=== PATIENT | female | born 1945 | race Caucasian/White ===

== ENCOUNTER 2016-11-30 08:50 | Day surgery (SDC) | payer MEDICARE ==
[2016-11-29 08:41] VITALS: BMI 19.7
[2016-11-30 09:15] VITALS: RESP 16; TEMP 97
[2016-11-30] MEDS ORDERED: SODIUM CHLORIDE 0.9% 500 ML IV ONE (09:20)
[2016-11-30] MEDS ORDERED: MIDAZOLAM 2 MG/2 ML VIAL ONE (11:00)
[2016-11-30] MEDS ORDERED: fentaNYL (PF) 50 MCG/ML 2 ML AMP ONE (11:01)
[2016-11-30] MEDS: BENZOCAINE SPRAY 100 APPLIC/CAN MUCOUS MEM ONE ×2 (11:24→11:40)
[2016-11-30] MEDS ORDERED: MIDAZOLAM 2 MG/2 ML VIAL IVP ONE ×2 (11:32→11:49)
--- NOTE | 2016-11-30 13:26 | ECHOT ---
DATE OF SERVICE: 11/30/2016 PERFORMING PHYSICIAN: Franco Sandhu MD, tape maker. PROCEDURE PERFORMED: Transesophageal echocardiogram. INDICATIONS OF THE STUDY: This is a pleasant 71-year-old female patient who was experiencing shortness of breath. She underwent transthoracic echocardiogram, which showed dilated right ventricle. The transesophageal echocardiogram to rule out any interatrial shunt. COMPLICATIONS: None. LEVEL OF SEDATION: Moderate with a sedation length of about 15 minutes. PROCEDURE DESCRIPTION: After obtaining an informed consent, explaining the procedure, benefits, risks, complications and alternatives, the patient was brought to the transesophageal echocardiogram suite. A pulse oximetry and heart rate monitors were attached to the patient prior to the procedure. The patient's throat was sprayed using lidocaine locally. Following that, the patient was turned into left lateral position. A bite guard was placed and the patient was then sedated with the above doses of Versed and fentanyl in divided doses. Following that, the transesophageal echocardiogram probe was advanced through the bite guard into the mid esophagus where 2-D echocardiogram images as well as color Doppler images of various cardiac structures were obtained. We evaluated the interatrial septum using 2-D echocardiogram, color Doppler, and contrast study. The procedure was completed. There were no complications. FINDINGS: The left ventricular dimension and systolic function appeared to be within normal limits. The ejection fraction appeared to be in the range of 55% to 60% with a normal wall motion. The right ventricle appeared to be dilated. The left atrium and right atrium are mildly dilated. Left atrial appendage appeared to be free from any thrombus. The interatrial septum appeared to be intact without any evidence of shunt across it. The aortic valve is trileaflet valve with trace aortic insufficiency but the mitral valve seems to be also normal with mild MR. The tricuspid valve appeared to have moderate tricuspid regurgitation. The pulmonic valve appeared to be within normal limits. CONCLUSION: 1. Intact interatrial septum without any evidence of shunt. 2. Normal left atrial appendage without any evidence of thrombus. 3. Mild biatrial enlargement. 4. Normal left ventricular dimension and systolic function. 5. Mildly dilated right ventricle with normal function. 6. Trileaflet aortic valve without stenosis with mild insufficiency. 7. Normal mitral valve leaflets with mild mitral regurgitation. 8. Moderate tricuspid regurgitation. 9. Normal pulmonary artery systolic pressure. 10. No evidence of pericardial effusion.
[2016-11-30 13:43] VITALS: BP 105/57; PULSE 66
== END 2016-11-30 13:45 | disposition home or self-care (01) ==
LOC: CATHCVL 08:50
PROVIDERS: ATTEND Internal Medicine Interventional Cardiology
DX: I36.1 Nonrheumatic tricuspid (valve) insufficiency (principal); I47.1 Supraventricular tachycardia; I27.2 Other secondary pulmonary hypertension; E78.5 Hyperlipidemia, unspecified; Z82.49 Family history of ischemic heart disease and other diseases of the circulatory system; Z79.51 Long term (current) use of inhaled steroids
CPT/HCPCS: 93312; 93320; 93325; 99152; J2250

== ENCOUNTER → 2016-12-11 | Outpatient (CLI) | payer MEDICARE ==
[2016-12-11 16:37] LABS: CH 32.1; HCT 39.6 % (34.0-46.0); HDW 2.21; HGB 12.7 gm/dL (11.4-16.0); MCH 31.3 pg (25.0-35.0); MCV 97.8 fL (80.0-100.0); Mean Platelet Volume 7.7; RBC 4.05 m/uL (3.80-5.40); RDW 12.9 % (11.5-15.5); WBC 6.7 k/uL (3.8-10.6)
[2016-12-11 16:55] LABS: Anion Gap 10 mmol/L; Blood Urea Nitrogen 21 mg/dL (7-17); Carbon Dioxide 26 mmol/L (22-30); Chloride 104 mmol/L (98-107); Non-African American GFR(MDRD) >60 (>60 ml/min/1.73 sqM); Potassium 4.8 mmol/L (3.5-5.1); Sodium 140 mmol/L (137-145)
== END ==
LOC: LABPAT 16:24
PROVIDERS: ATTEND Internal Medicine Interventional Cardiology
DX: Z01.812 Encounter for preprocedural laboratory examination (principal); R07.9 Chest pain, unspecified
CPT/HCPCS: 36415; 80051; 82565; 84520; 85027

== ENCOUNTER 2016-12-24 10:29 | Day surgery (SDC) | payer MEDICARE ==
[2016-12-18 15:33] VITALS: BMI 20.1
[~2016-12-24 10:29] MED LIST: ALPRAZolam 0.25 MG TAB PO PRN; ALPRAZolam 0.5 MG TAB PO PRN; ASPIRIN 325 MG TAB PO STA; ATORVASTATIN 80 MG TAB PO STA; NITROGLYCERIN SL TABS 0.4 MG TAB SUBLINGUAL PRN; SODIUM CHLORIDE 0.9% 1,000 ML in EMPTY BAG 1 BAG IV ONE
[2016-12-24 10:52] VITALS: TEMP 97.6
[2016-12-24] MEDS ORDERED: MIDAZOLAM 2 MG/2 ML VIAL ONE (12:06)
[2016-12-24] MEDS ORDERED: LIDOCAINE 2% INJ 20 MG/ML (20 ML MDV) ONE (12:06)
[2016-12-24] MEDS ORDERED: MIDAZOLAM 2 MG/2 ML VIAL IV ONE (12:10)
[2016-12-24] MEDS ORDERED: LIDOCAINE 2% INJ 20 MG/ML SQ ONE (12:11)
[2016-12-24] MEDS ORDERED: IOHEXOL 350 MG/ML 125ML BOTTLE INJ ONE (12:27)
[2016-12-24] MEDS ORDERED: RX INFO: IV CONTRAST WAS GIVEN 1 EACH MISC MISCELLANE PRN (12:33)
[2016-12-24] MEDS ORDERED: SODIUM CHLORIDE 0.9% 1,000 ML IV SCH (12:45)
[2016-12-24 16:00] VITALS: PULSE 57; RESP 16
[2016-12-24] MEDS ORDERED: ACETAMINOPHEN TAB 325 MG TAB ONE (16:29)
[2016-12-24 17:20] VITALS: BP 89/53
--- NOTE | 2016-12-24 22:31 | CC ---
DATE OF SERVICE: 12/24/2016 Performing physician: Franco Sandhu M.D., lens grinder rough. PROCEDURES PERFORMED: 1. Selective right and left coronary angiogram. 2. Left heart catheterization. 3. Left ventriculography. INDICATION: This is a pleasant 71-year-old continues to have intermittent episodes chest discomfort in spite of maximized medical treatment. Approach: Right common femoral artery. Level of sedation: Moderate. PROCEDURE DESCRIPTION: After obtaining informed consent, the patient was brought to the cardiac laboratory engineer. Right common femoral artery was cannulated using micropuncture technique. Micropuncture wire passed easily and then I placed a 6 [place] sheath in the right common femoral artery. After that, I did selective right and left coronary angiogram using JR 3.5 and JL 3.5 catheters. After that, I did left heart catheterization and LV gram using a 6 [place] pigtail catheter. The procedure was completed without any complication. SELECTIVE CORONARY ANGIOGRAM: 1. The right coronary artery is a large-caliber vessel and it is a dominant vessel and it is angiographically normal. It bifurcates into PDA and PLV branches; both are angiographically normal. 2. The left main is angiographically normal. It bifurcates into the left circumflex and left anterior descending artery. The left circumflex is a large-caliber vessel and a nondominant vessel. The left circumflex is angiographically normal and gives rise into 2 obtuse marginal branches appeared to be angiographically normal. 3. The left anterior descending artery. The proximal LAD is angiographically normal. The mid LAD has plaque, seems to be in the range of 20% only. This is by the bifurcation of the large diagonal, which seems to be angiographically normal. The LAD distally is angiographically normal. HEMODYNAMICS: The left ventricular end-diastolic pressure was 12 mmHg. No gradient was identified across the aortic valve. Left ventriculography was performed in the BORJAS projection and using a power injection. The left ventricular systolic function seems to be normal. CONCLUSION: Mild nonobstructive coronary artery disease involving the mid left anterior descending coronary artery. Postprocedure management: Medical treatment.
--- NOTE | 2016-12-24 22:33 | LTR ---
December 24, 2016 RE: Stephanie Orourke Dear Dr. Campos: Ms. Stephanie Orourke underwent heart catheterization that showed mild nonobstructive coronary artery disease. I want to thank you for allowing me to participate in her care. Please do not hesitate to call if you have any questions or concerns. Sincerely, JANE WEBB MD
== END 2016-12-24 17:43 | disposition home or self-care (01) ==
LOC: CATHCVL 10:29
PROVIDERS: ATTEND Internal Medicine Interventional Cardiology
DX: I25.110 Atherosclerotic heart disease of native coronary artery with unstable angina pectoris (principal); I47.1 Supraventricular tachycardia; E78.5 Hyperlipidemia, unspecified; Z82.49 Family history of ischemic heart disease and other diseases of the circulatory system; Z79.899 Other long term (current) drug therapy; I27.2 Other secondary pulmonary hypertension; Z88.0 Allergy status to penicillin
CPT/HCPCS: 93458; 99152; C1769 ×3; C1894; C1760; J2001; J2250; Q9967

== ENCOUNTER 2020-01-21 06:59 | Day surgery (SDC) | payer MEDICARE ==
[2020-01-19 16:33] VITALS: BMI 16.8
[~2020-01-21 06:59] MED LIST changes: -ALPRAZolam 0.25 MG TAB PO PRN; -ALPRAZolam 0.5 MG TAB PO PRN; -ASPIRIN 325 MG TAB PO STA; -ATORVASTATIN 80 MG TAB PO STA; +LACTATED RINGERS 1,000 ML IV SCH; -NITROGLYCERIN SL TABS 0.4 MG TAB SUBLINGUAL PRN; -SODIUM CHLORIDE 0.9% 1,000 ML in EMPTY BAG 1 BAG IV ONE
[2020-01-21 07:23] VITALS: RESP 16; TEMP 97.7
[2020-01-21] MEDS ORDERED: PROPOFOL 10 MG/ML 20 ML VIAL IV ONE (07:30)
[2020-01-21] MEDS ORDERED: LIDOCAINE 1% (10MG/ML) FOR IV START INTRADERMA ONE (07:33)
--- NOTE | 2020-01-21 08:17 | P.PCN ---
Date of Procedure: 01/21/20 Description of Procedure: BRIEF HISTORY: Patient is a 74-year-old female presents for outpatient colonoscopy for screening for malignant neoplasm of the colon. Last colonoscopy 5 years ago and normal however she reports polyps on previous colonoscopy. She does report some weakness and unintentional weight loss of approximately 10 pounds over the past few months. PROCEDURE PERFORMED: Colonoscopy. PREOPERATIVE DIAGNOSIS: Screening for malignant neoplasm of the colon, last colonoscopy 5 years ago. ESTIMATED BLOOD LOSS: Minimal. IV sedation per Anesthesia. PROCEDURE: After informed consent was obtained, the patient, was brought into the endoscopy unit. IV sedation was administered by Anesthesia under continuous monitoring. Digital rectal examination was normal. Initially the Olympus CF-190 flexible video colonoscope was then inserted in the rectum however could not be advanced past the sigmoid due to a benign sigmoid stricture related to diverticular disease. A pediatric video colonoscope was then inserted into the rectum, gradually advanced into the cecum without any difficulty. Careful examination was performed as the scope was gradually being withdrawn. Ileocecal valve and the appendiceal orifice were visualized and appeared normal. Prep was excellen t. Mucosa of the cecum, ascending colon, transverse colon, descending colon, sigmoid colon, and rectum appeared normal, except for moderate sigmoid diverticulosis with an associated sigmoid stricture. Retroflexion was performed in the rectum and no lesions were seen. The patient tolerated the procedure well. IMPRESSION: Moderate sigmoid diverticulosis, with associated sigmoid stricture requiring pediatric colonoscope. Otherwise, normal-appearing colon from rectum to cecum. RECOMMENDATIONS: Findings of this examination were discussed with the patient. Okay to resume diet. Okay to resume medications. Would recommend repeat colonoscopy in 10 years or sooner if signs or symptoms which warrant further evaluation developed and if medically stable at that time.
[2020-01-21 08:37] VITALS: BP 117/73; PULSE 66
== END 2020-01-21 09:17 | disposition home or self-care (01) ==
LOC: ORWHC2ENDO 06:59
PROVIDERS: ATTEND Internal Medicine
DX: Z12.11 Encounter for screening for malignant neoplasm of colon (principal); K57.30 Diverticulosis of large intestine without perforation or abscess without bleeding; I47.1 Supraventricular tachycardia; Z86.010 Personal history of colon polyps; Z88.0 Allergy status to penicillin; Z79.899 Other long term (current) drug therapy; Z79.51 Long term (current) use of inhaled steroids; Z98.890 Other specified postprocedural states; Z80.0 Family history of malignant neoplasm of digestive organs; Z91.048 Other nonmedicinal substance allergy status
CPT/HCPCS: J2704; G0105; 45378

== ENCOUNTER 2023-07-24 11:29 | Emergency (ER) | payer MEDICARE ==
[2023-07-24 12:01] VITALS: BP 110/66; PULSE 80; RESP 16; TEMP 97.9
--- NOTE | 2023-07-24 12:31 | XR ---
EXAMINATION TYPE: XR chest 2V DATE OF EXAM: 07/24/2023 12:24 PM CLINICAL INDICATION:Female, 78 years old with history of Chest Pain; [facility] COMPARISON: Chest radiographs from 07/24/2023. TECHNIQUE: XR chest 2V Frontal and lateral views of the chest. FINDINGS: Lungs/Pleura: There is flattening of the diaphragm with increased lucency of the lungs. No evidence o f pneumothorax, pleural effusion or focal consolidation. Pulmonary vascularity: Unremarkable. Heart/mediastinum: Cardiomediastinal silhouette is unremarkable. Musculoskeletal: No acute osseous pathology. IMPRESSION: 1. No acute cardiopulmonary disease process. 2. COPD changes.
[2023-07-24 12:57] LABS: Partial Thromboplastin Time 22.1 sec (22.0-30.0); Prothrombin Time 10.5 sec (10.0-12.5)
[2023-07-24 12:58] LABS: Basophils % (A) 0 %; Eosinophils # (A) 0.1 k/uL (0-0.7); Eosinophils % (A) 2 %; HCT 40.8 % (34.0-46.0); HGB 13.7 gm/dL (11.4-16.0); Lymphocytes # (A) 1.5 k/uL (1.0-4.8); Lymphocytes % (A) 31 %; MCH 31.8 pg (25.0-35.0); MCHC 33.5 g/dL (31.0-37.0); MCV 94.7 fL (80.0-100.0); Mean Platelet Volume 8.8; Monocytes # (A) 0.3 k/uL (0-1.0); Monocytes % (A) 5 %; Neutrophils # (A) 2.9 k/uL (1.3-7.7); Neutrophils % (A) 58 %; Platelet Count 199 k/uL (150-450); RDW 12.3 % (11.5-15.5)
[2023-07-24 13:00] LABS: ALT 17 U/L (4-34); AST 29 U/L (14-36); African American GFR (CKD) >90 (>60 ml/min/1.73 sqM); Albumin 4.3 g/dL (3.5-5.0); Alkaline Phosphatase 66 U/L (38-126); Anion Gap 9 mmol/L; Blood Urea Nitrogen 22 mg/dL (7-17); Calcium 9.1 mg/dL (8.4-10.2); Carbon Dioxide 21 mmol/L (22-30); Chloride 107 mmol/L (98-107); Glucose 91 mg/dL (74-99); Magnesium 2.1 mg/dL (1.6-2.3); Non-African American GFR(CKD) 87 (>60 ml/min/1.73 sqM); Potassium 4.1 mmol/L (3.5-5.1); Sodium 137 mmol/L (137-145); Total Bilirubin 1.4 mg/dL (0.2-1.3); Total Protein 7.2 g/dL (6.3-8.2)
[2023-07-24 13:08] LABS: NT-Pro-B-Type Natriuretic Pept 289 pg/mL
--- NOTE | 2023-07-24 13:33 | ED ---
Chest Pain HPI - General Chief Complaint: Chest Pain Stated Complaint: Chest Pain Time Seen by Provider: 07/24/23 11:53 Source: patient, RN notes reviewed Mode of arrival: wheelchair Limitations: no limitations - History of Present Illness Initial Comments: 78-year-old female presents emergency department with chief complaint of chest pain. She states that started around 9 AM this morning. Patient states she has no prior cardiac disease denies any prior lung disease she does have a history of mildly elevated cholesterol. She denies hypertension or diabetes she does have a cardiac family history. Patient states that she had increasing nausea. - Related Data Home Medications Medication Instructions Recorded Confirmed Multivit-Min/Iron/Folic/Lutein 1 tab PO DAILY 07/24/23 07/24/23 [Centrum Silver Women Tablet] Allergies Allergy/AdvReac Type Severity Reaction Status Date / Time Penicillins Allergy Severe Anaphylaxis Verified 07/24/23 13:55 mold Allergy Wheezing Verified 07/24/23 13:55 medication used for Allergy Hallucinati Uncoded 01/21/20 07:22 colonoscopy ons Review of Systems ROS Statement: Those systems with pertinent positive or pertinent negative responses have been documented in the HPI. ROS Other: All systems not noted in ROS Statement are negative. EKG Findings - EKG Comments: EKG Findings:: EKG performed at 12: 46 sinus rhythm first-degree block rate of 75 AL 232 QRS 113 QT/QTc 368/397 - EKG Results: EKG: interpreted by TOMASZ Past Medical History Past Medical History: Cancer, Supraventricular Tachycardia (SVT) Additional Past Medical History / Comment(s): irregular heart beat, skin cancer, hx c-diff 10 yrs ago , low BP, irregular bowel movements, fatigue, History of Any Multi-Drug Resistant Organisms: None Reported Past Surgical History: Adenoidectomy, Tonsillectomy Additional Past Surgical History / Comment(s): skin cancer removed from left shoulder, peggy cataracts, IRENE Past Anesthesia/Blood Transfusion Reactions: Previous Problems w/ Anesthesia Additional Past Anesthesia/Blood Transfusion Reaction / Comment(s): had hallucinations from anesthesia used for colonoscopy Past Psychological History: No Psychological Hx Reported Smoking Status: Never smoker - Past Family History Sister(s) Family Medical History: Cancer Mother Family Medical History: Cancer General Exam Limitations: no limitations General appearance: alert, in no apparent distress Head exam: Present: atraumatic, normocephalic, normal inspection Eye exam: Present: normal appearance, PERRL, EOMI. Absent: scleral icterus, conjunctival injection, periorbital swelling ENT exam: Present: normal exam, normal oropharynx, mucous membranes moist Neck exam: Present: normal inspection, full ROM. Absent: tenderness, meningismus, lymphadenopathy Respiratory exam: Present: normal lung sounds bilaterally. Absent: respiratory distress, wheezes, rales, rhonchi, stridor Cardiovascular Exam: Present: regular rate, normal rhythm, normal heart sounds. Absent: systolic murmur, diastolic murmur, rubs, gallop, clicks GI/Abdominal exam: Present: soft, normal bowel sounds. Absent: distended, tenderness, guarding, rebound, rigid Course Vital Signs 07/24/23 11:37 Temperature 97.9 F Pulse Rate 80 Respiratory 16 Rate Blood Pressure 110/66 O2 Sat by Pulse 100 Oximetry Chest Pain MDM - MDM I was pt. sent in by a medical professional or institution (, PA, HOT END OPERATOR, urgent care, hospital, or assisted...) When possible be specific @ -No Did you speak to anyone other than the patient for history (EMS, parent, family, police, friend...)? What history was obtained from this source @ -No Did you review nursing and triage notes (agree or disagree)? Why? @ -I reviewed and agree with nursing and triage notes Were old charts reviewed (outside hosp., previous admission, EMS record, old EKG, old radiological studies, urgent care reports/EKG's, assisted records)? Report findings @ -No old charts were reviewed Differential Diagnosis (chest pain, altered mental status, abdominal pain women, abdominal pain men, vaginal bleeding, weakness, fever, dyspnea, syncope, headache, dizziness, GI bleed, back pain, seizure, CVA, palpatations, mental health, musculoskeletal)? @ -[Differential Chest Pain: Stable Angina, Unstable Angina, STEMI, NSTEMI Aortic Dissection, Pneumothorax, Musculoskeletal, Esophageal Spasm GERD, Cholecystitis, Pancreatitis, Zoster, this is not meant to be an all-inclusive list. EKG interpreted by me (3pts min.). @ -As above X-rays interpreted by me (1pt min.). @ -[Chest xray shows no acute process CT interpreted by me (1pt min.). @ -None done U/S interpreted by me (1pt. min.). @ -None done What testing was considered but not performed or refused? (CT, X-rays, U/S, labs)? Why? @ -None What meds were considered but not given or refused? Why? @ -None Did you discuss the management of the patient with other professionals (professionals i.e. , PA, HOT END OPERATOR, lab, RT, psych nurse, group social worker, sales service manager, teacher, traffic division commanding officer, case loader operator)? Give summary @ -No Was smoking cessation discussed for >3mins.? @ -No Was critical care preformed (if so, how long)? @ -No Were there social determinants of health that impacted care today? How? (Homelessness, low income, unemployed, alcoholism, drug addiction, transportation, low edu. Level, literacy, decrease access to med. care, fdc, rehab)? @ -No Was there de-escalation of care discussed even if they declined (Discuss DNR or withdrawal of care, Hospice)? DNR status @ -No What co-morbidities impacted this encounter? (DM, HTN, Smoking, COPD, CAD, Cancer, CVA, ARF, Chemo, Hep., AIDS, mental health diagnosis, sleep apnea, mo rbid obesity)? @ -[Vertigo Was patient admitted / discharged? Hospital course, mention meds given and route, prescriptions, significant lab abnormalities, going to OR and other pertinent info. @ -Discharge patient recommended to be admitted secondary to chest pain with multiple risk factors. Patient refuses stating that she is asymptomatic currently she has an MRI scheduled tomorrow for her ongoing vertigo. She understands the risk of leaving including patient's at bedside who understands and agrees to plan of discharge as patient request Undiagnosed new problem with uncertain prognosis? @ -[No Drug Therapy requiring intensive monitoring for toxicity (Heparin, Nitro, Insulin, Cardizem)? @ -No Were any procedures done? @ -No Diagnosis/symptom? @ -[Chest pain Acute, or Chronic, or Acute on Chronic? @ -Acute Uncomplicated (without systemic symptoms) or Complicated (systemic symptoms)? @ -complicated Side effects of treatment? @ -[No Exacerbation, Progression, or Severe Exacerbation? @ -No Poses a threat to life or bodily function? How? (Chest pain, [place], [place], pneumonia, PE, COPD, DKA, ARF, appy, cholecystitis, CVA, Diverticulitis, Homicidal, Suicidal, threat to staff... and all critical care pts) @ -Yes possible ACS Disposition Clinical Impression: Chest pain Disposition: HOME SELF-CARE Condition: Stable Instructions (If sedation given, give patient instructions): Chest Pain (ED) Additional Instructions: Please return to the Emergency Department if symptoms worsen or any other concerns. Is patient prescribed a controlled substance at d/c from ED?: No Referrals: Jatinder Campos MD [Primary Care Provider] - 1-2 days Time of Disposition: 13:57
== END 2023-07-24 14:20 | disposition home or self-care (01) ==
LOC: EC 11:29
DX: I44.0 Atrioventricular block, first degree (principal); J44.9 Chronic obstructive pulmonary disease, unspecified; Z88.0 Allergy status to penicillin; Z88.8 Allergy status to other drugs, medicaments and biological substances
CPT/HCPCS: 36415; 71046; 80053; 83735; 83880; 84484; 85025; 85610; 85730; 93005; 99285